=== PATIENT | male | born 1985 | race Caucasian/White ===

== ENCOUNTER 2021-02-25 17:10 | Emergency (ER) | payer BC, OTHER ==
[~2021-02-25] VITALS: Ht 180 cm; Wt 103.4 kg
[2021-02-25] MEDS ORDERED: ACETAMINOPHEN 500 MG TAB (TYLENOL) ONE (17:42)
[2021-02-25] MEDS ORDERED: NS IV 1000 ML 1,000 ML ONE (17:42)
[2021-02-25] MEDS ORDERED: RX-ALBUTEROL INHALER 8.5 GM HFA (PROAIR) IH STA (17:50)
[2021-02-25 18:01] LABS: EOSINOPHILS % (AUTO) 0 % (0-10); LYMPHOCYTES # (AUTO) 0.5 10^3/uL (1.0-4.0)
--- NOTE | 2021-02-25 18:01 | ED General ---
General Chief Complaint: Fever-Adult/Adol Stated Complaint: FATIGUE/COLD SWEATS/COUGH/SOA History of Present Illness Date Seen by Provider: Feb 25, 2021 Time Seen by Provider: 17:45 Initial Comments 35-year-old male presents for 2-week history of cough, congestion, and malaise. He has been treating his symptoms with Tylenol and ibuprofen and no improvement. His family members had similar symptoms. He does not have someone with a positive Covid test however most of them believe they have COVID, none have been vaccinated. He has continued to work and do normal activities, as tolerated. Last Ibuprofen approximately 90 minutes ago, temp 101.7 at presentation. Denies productive cough. Reports no loss of smell or taste. He took ASA 81 mg today. Timing/Duration: Changing Over Time (2 weeks) Associated Systoms: No Chest Pain; Cough, Fever/Chills, Loss of Appetite, Malaise; No Nausea/Vomiting; Shortness of Air, Weakness Allergies and Home Medications Allergies Coded Allergies: Sulfa (Sulfonamide Antibiotics) (Verified Allergy, Unknown, 02/25/21) Home Medications Amoxicillin/Potassium Clav 1 Each Tablet, 1 EACH PO BID Prescribed by: SU VALDES on 02/25/211911 Azithromycin 250 Mg Tablet, 250 MG PO UD TAKE 2 TABLETS ON DAY ONE THEN TAKE 1 TABLET DAILY FOR FOUR MORE DAYS Prescribed by: SU VALDES on 02/25/211911 Dexamethasone 6 Mg Tablet, 6 MG PO DAILY Prescribed by: SU VALDES on 02/25/211911 Patient Home Medication List Home Medication List Reviewed: Yes Review of Systems Review of Systems Constitutional: see HPI, chills, fever, malaise EENTM: see HPI, nose congestion Respiratory: see HPI, cough, dyspnea on exertion Cardiovascular: no symptoms reported, see HPI; No chest pain Gastrointestinal: see HPI; No abdominal pain, No diarrhea; loss of appetite, nausea (mild, better after eating); No vomiting Genitourinary: no symptoms reported, see HPI All Other Systems Reviewed Negative Unless Noted: Yes Past Gxqfxda-Llcbnv-Tmfocl Hx Patient Social History Tobacco Use?: No Use of E-Cig and/or Vaping dev: No Substance use?: No Alcohol Use?: No Seasonal Allergies Seasonal Allergies: No Family Medical History Reviewed and Corrections made Physical Exam Vital Signs Vital Signs - First Documented 02/25/21 02/25/21 17:46 20:45 Temp 38.7 Pulse 94 Resp 18 B/P (MAP) 119/81 Pulse Ox 93 Capillary Refill : Height, Weight, BMI Height: '" Weight: lbs. oz. kg; BMI Method: General Appearance: No Apparent Distress, WD/WN Eyes: Bilateral Eye Normal Inspection, Bilateral Eye PERRL, Bilateral Eye EOMI HEENT: PERRL/EOMI, TMs Normal, Normal ENT Inspection, Pharynx Normal, Moist Mucous Membranes Neck: Full Range of Motion, Normal Inspection, Non Tender, Supple Respiratory: Chest Non Tender, Lungs Clear, Normal Breath Sounds Cardiovascular: Regular Rate, Rhythm, No Edema, No Murmur, Normal Peripheral Pulses Gastrointestinal: Normal Bowel Sounds, Non Tender, Soft; No Distended, No Mass, No Rebound, No Tenderness Back: Normal Inspection, No CVA Tenderness, No Vertebral Tenderness Extremity: Normal Capillary Refill, Normal Inspection, Normal Range of Motion, Non Tender, No Calf Tenderness, No Pedal Edema Neurologic/Psychiatric: Alert, Oriented x3, No Motor/Sensory Deficits, Normal Mood/Affect Skin: Normal Color, Warm/Dry Focused Exam Lactate Level 02/25/21 17:30: Lactic Acid Level 1.08 Lactic Acid Level Laboratory Tests Test 02/25/21 17:30 Lactic Acid Level 1.08 MMOL/L (0.50-2.00) Progress/Results/Core Measures Suspected Sepsis Recent Fever Within 48 Hours: Yes Infection Criteria Present: Suspected New Infection New/Unexplained Altered Menta: No Within 3hrs of presentation: Admin fluids, Blood cultures prior to ABX's, D/C Instructions given to patient, Focus exam, Lactate level SIRS Temperature: Pulse: Respiratory Rate: Laboratory Tests 02/25/21 17:30: White Blood Count 3.3L Blood Pressure / Mean: 02/25/21 17:30: Lactic Acid Level 1.08 Laboratory Tests 02/25/21 17:30: Creatinine 0.98, INR Comment 1.0, Platelet Count 133, Total Bilirubin 0.5 Results/Orders Lab Results Laboratory Tests Test 02/25/21 17:27 02/25/21 17:30 02/25/21 18:16 Range/Units Influenza Type A (RT-PCR) Not Detected Not Detecte Influenza Type B (RT-PCR) Not Detected Not Detecte SARS-CoV-2 RNA (RT-PCR) Detected H Not Detecte White Blood Count 3.3 L 4.3-11.0 10^3/uL Red Blood Count 5.23 4.30-5.52 10^6/uL Hemoglobin 14.4 13.3-17.7 g/dL Hematocrit 44 40-54 % Mean Corpuscular Volume 83 80-99 fL Mean Corpuscular Hemoglobin 28 25-34 pg Mean Corpuscular Hemoglobin Concent 33 32-36 g/dL Red Cell Distribution Width 13.3 10.0-14.5 % Platelet Count 133 130-400 10^3/uL Mean Platelet Volume 11.2 9.0-12.2 fL Immature Granulocyte % (Auto) 0 % Neutrophils (%) (Auto) 81 H 42-75 % Lymphocytes (%) (Auto) 14 12-44 % Monocytes (%) (Auto) 4 0-12 % Eosinophils (%) (Auto) 0 0-10 % Basophils (%) (Auto) 0 0-10 % Neutrophils # (Auto) 2.7 1.8-7.8 10^3/uL Lymphocytes # (Auto) 0.5 L 1.0-4.0 10^3/uL Monocytes # (Auto) 0.1 0.0-1.0 10^3/uL Eosinophils # (Auto) 0.0 0.0-0.3 10^3/uL Basophils # (Auto) 0.0 0.0-0.1 10^3/uL Immature Granulocyte # (Auto) 0.0 0.0-0.1 10^3/uL Percent Immature Platelet Fraction 5.7 0.0-7.6 % Erythrocyte Sedimentation Rate 33 H 0-15 MM/HR Prothrombin Time 13.6 12.2-14.7 SEC INR Comment 1.0 0.8-1.4 Activated Partial Thromboplast Time 28 24-35 SEC Sodium Level 139 135-145 MMOL/L Potassium Level 3.8 3.6-5.0 MMOL/L Chloride Level 106 98-107 MMOL/L Carbon Dioxide Level 21 21-32 MMOL/L Anion Gap 12 5-14 MMOL/L Blood Urea Nitrogen 10 7-18 MG/DL Creatinine 0.98 0.60-1.30 MG/DL Estimat Glomerular Filtration Rate 88 BUN/Creatinine Ratio 10 Glucose Level 108 H 70-105 MG/DL Lactic Acid Level 1.08 0.50-2.00 MMOL/L Calcium Level 8.3 L 8.5-10.1 MG/DL Corrected Calcium 8.4 L 8.5-10.1 MG/DL Total Bilirubin 0.5 0.1-1.0 MG/DL Aspartate Amino Transf (AST/SGOT) 28 5-34 U/L Alanine Aminotransferase (ALT/SGPT) 27 0-55 U/L Alkaline Phosphatase 48 40-136 U/L Lactate Dehydrogenase 332 H 125-220 U/L C-Reactive Protein High Sensitivity 6.61 H 0.00-0.50 MG/DL Total Protein 7.0 6.4-8.2 GM/DL Albumin 3.9 3.2-4.5 GM/DL Procalcitonin 0.06 <0.10 NG/ML Urine Color DARK YELLOW Urine Clarity CLEAR Urine pH 7.5 5-9 Urine Specific Wayne 1.015 L 1.016-1.022 Urine Protein 1+ H NEGATIVE Urine Glucose (UA) NEGATIVE NEGATIVE Urine Ketones 1+ H NEGATIVE Urine Nitrite NEGATIVE NEGATIVE Urine Bilirubin NEGATIVE NEGATIVE Urine Urobilinogen 1.0 < = 1.0 MG/DL Urine Leukocyte Esterase NEGATIVE NEGATIVE Urine RBC (Auto) NEGATIVE NEGATIVE Urine RBC NONE /HPF Urine WBC 2-5 /HPF Urine Squamous Epithelial Cells NONE /HPF Urine Renal Epithelial Cells NONE /HPF Urine Crystals NONE /LPF Urine Bacteria NEGATIVE /HPF Urine Casts NONE /LPF Urine Mucus SMALL H /LPF Urine Culture Indicated NO My Orders Orders - SU VALDES Covid 19 Inhouse Test (02/25/21 17:18) Influenza A And B By Pcr (02/25/21 17:18) Acetaminophen Tablet (Tylenol Tablet) (02/25/21 17:42) Ns Iv 1000 Ml (Sodium Chloride 0.9%) (02/25/21 17:42) Cbc With Automated Diff (02/25/21 17:50) Comprehensive Metabolic Panel (02/25/21 17:50) Procalcitonin (Pct) (02/25/21 17:50) Hs C Reactive Protein (02/25/21 17:50) Erythrocyte Sedimentation Rate (02/25/21 17:50) LDH (02/25/21 17:50) Blood Culture (02/25/21 17:50) Urinalysis (02/25/21 17:50) Urine Culture (02/25/21 17:50) Protime With Inr (02/25/21 17:50) Partial Thromboplastin Time (02/25/21 17:50) Chest 1 View, Ap/Pa Only (02/25/21 17:50) Ed Iv/Invasive Line Start (02/25/21 17:50) O2 (02/25/21 17:50) Lactic Acid Analyzer (02/25/21 17:50) Rx-Albuterol Inhaler (Rx-Ventolin Hfa In (02/25/21 17:50) Ceftriaxone (Rocephin) (02/25/21 18:45) Dexamethasone Injection (Decadron Inje (02/25/21 18:45) Ed Iv/Invasive Line Start (02/25/21 18:46) Ns Iv 1000 Ml (Sodium Chloride 0.9%) (02/25/21 19:00) Medications Given in ED Current Medications Medications Dose Ordered Sig/Loki Route Start Time Stop Time Status Last Admin Dose Admin Acetaminophen 500 mg STK-MED ONCE .ROUTE 02/25/21 17:42 02/25/21 17:44 DC 02/25/21 17:46 1,000 MG Ceftriaxone Sodium 2000 mg/ Sterile Water 20 ml @ 240 mls/hr ONCE ONCE IV 02/25/21 18:45 02/25/21 18:49 DC 02/25/21 19:38 240 MLS/HR Dexamethasone Sodium Phosphate 10 mg ONCE ONCE IV 02/25/21 18:45 02/25/21 18:46 DC 02/25/21 19:41 10 MG Sodium Chloride 1,000 ml @ ud STK-MED ONCE .ROUTE 02/25/21 17:42 02/25/21 17:44 DC 02/25/21 17:47 1,000 MLS/HR Vital Signs/I&O 02/25/21 02/25/21 17:46 20:45 Temp 38.7 Pulse 94 Resp 18 B/P (MAP) 119/81 Pulse Ox 93 Capillary Refill : Progress Note : Time: 17:45 Progress Note Patient seen and evaluated, will check labs, chest x-ray and give normal saline 1 L per IV, and Tylenol 1000 mg. SaO2 on room air between 92 and 94%, applied oxygen at 1 L per nasal cannula and maintained SaO2 of 96% or higher. 1805 COVID +, patient notified. 1829 SaO2 97% on 2 L, will return to RA and monitor. Ventolin 2 puffs of HFA. 1899 patient reports improvement in symptoms since the inhaler, Tylenol and IV fluids. Will give Rocephin 2 g IV and a second liter of fluids and plan for discharge. 1929 Temp 98.4. Sa O2 95-97% on RA. 2014 patient has continued to report improvement, no requests at this time will discharge after IV fluids are done infusing. Discharge instructions and return precautions reviewed with the patient. All questions answered. Diagnostic Imaging Diagonstic Imaging: Xray Plain Films/CT/US/NM/MRI: chest Comments NAME: CECILIA JAMES [facility] REC#: [id number] PT STATUS: REG ER : 1985 PHYSICIAN: SU VALDES ADMIT DATE: 02/25/21/ER Signed Date of Exam:02/25/21 CHEST 1 VIEW, AP/PA ONLY INDICATION: Sepsis Portable chest 6:16 PM There appears to be some patchy peripheral alveolar infiltrates in the lungs. There are no effusions or pneumothoraces. Heart size and pulmonary vascularity are normal. IMPRESSION: Faint patchy peripheral alveolar infiltrates in the lungs suspicious for pneumonia Dictated by: Dictated on workstation # [id number] Dict: 02/25/[id number] Trans: 02/25/21 183 SHIRA [id number] Interpreted by: ANAID LEE MD Electronically signed by: ANAID ELE MD 02/25/21 183 Reviewed: Reviewed by Me Departure Impression Primary Impression: COVID-19 Additional Impressions: Fever Qualified Codes: R50.9 - Fever, unspecified Pneumonia Qualified Codes: J18.9 - Pneumonia, unspecified organism Disposition: HOME, SELF-CARE Condition: Stable Departure-Patient Inst. Decision time for Depature: 19:05 Referrals: DIONE FIGUEROA (PCP) Primary Care Physician Patient Instructions: COVID-19 (DC), Fever, Adult (DC), Pneumonia, Adult (DC) Add. Discharge Instructions: Take aspirin 81 mg once a day. Alternate between Tylenol 650 mg and ibuprofen 600 mg every 4 hours for pain or fever. Use the Ventolin inhaler 2 puffs every 4-6 hours as needed for shortness of breath. Increase water intake, 16 ounces every 2 hours while awake. Take an immune vitamin supplement, that includes vitamin C, vitamin D and zinc. Stay home in quarantine until the health department says that you may be rel eased. Notify any close contacts that you have had in the last 48 hours, they will be notified by the Health Dept of their quarantine. Take Antibiotics and Decadron, as prescribed. Walk 5-10 min, every hour, while awake. Take deep breaths and cough. Sleep on your stomach. If you survive COVID, PLEASE get a vaccine as soon as the health dept says you can. Please encourage all family members and friends to get the vaccine, it does save people's lives! Call your primary care provider in 2 to 3 days if symptoms are not improving or worsen, televisit may be an option. Return to the emergency department for fever greater than 101 degrees not relieved with Tylenol and ibuprofen, difficulty breathing, chest pain, or new urgent healthcare needs. All discharge instructions reviewed with patient and/or family. Voiced understanding. Scripts Dexamethasone (Decadron) 6 Mg Tablet 6 MG PO DAILY, #7 TAB 0 Refills Prov: SU VALDES 02/25/21 Azithromycin (Azithromycin) 250 Mg Tablet 250 MG PO UD, #6 TAB 0 Refills TAKE 2 TABLETS ON DAY ONE THEN TAKE 1 TABLET DAILY FOR FOUR MORE DAYS Prov: SU VALDES 02/25/21 Amoxicillin/Potassium Clav (Augmentin 875-125 Tablet) 1 Each Tablet 1 EACH PO BID, #20 TAB 0 Refills Prov: SU VALDES 02/25/21 Work/School Note: Work Release Form Date Seen in the Emergency Department: Feb 25, 2021 Restrictions: Need Release from Doctor Other Restrictions Listed Below: no work, until released by Dr. Figueroa Copy Copies To 1: DIONE FIGUEROA AMY ARNP Feb 25, 2021 18:01
[2021-02-25 18:03] LABS: BASOPHILS % (AUTO) 0 % (0-10); HEMATOCRIT 44 % (40-54); HEMOGLOBIN 14.4 g/dL (13.3-17.7); LYMPHOCYTES % (AUTO) 14 % (12-44); MEAN CORPUSCULAR HEMOGLOBIN 28 pg (25-34); MEAN CORPUSCULAR HGB CONC 33 g/dL (32-36); MEAN CORPUSCULAR VOLUME 83 fL (80-99); MEAN PLATELET VOLUME 11.2 fL (9.0-12.2); MONOCYTES # (AUTO) 0.1 10^3/uL (0.0-1.0); MONOCYTES % (AUTO) 4 % (0-12); NEUTROPHILS # (AUTO) 2.7 10^3/uL (1.8-7.8); NEUTROPHILS % (AUTO) 81 % (42-75); PLATELET COUNT 133 10^3/uL (130-400); WHITE BLOOD COUNT 3.3 10^3/uL (4.3-11.0)
[2021-02-25 18:11] LABS: ALBUMIN 3.9 GM/DL (3.2-4.5); POTASSIUM 3.8 MMOL/L (3.6-5.0)
[2021-02-25 18:12] LABS: CALCIUM 8.3 MG/DL (8.5-10.1)
[2021-02-25 18:16] LABS: BILIRUBIN,TOTAL 0.5 MG/DL (0.1-1.0)
[2021-02-25 18:17] LABS: CREATININE SERUM 0.98 MG/DL (0.60-1.30); PROTHROMBIN TIME PATIENT 13.6 SEC (12.2-14.7)
[2021-02-25 18:28] LABS: BILIRUBIN,URINE NEGATIVE (NEGATIVE); CLARITY,URINE CLEAR; COLOR,URINE DARK YELLOW; GLUCOSE, URINE (UA) NEGATIVE (NEGATIVE); KETONES,URINE 1+ (NEGATIVE); LEUKOCYTE ESTERASE ,URINE NEGATIVE (NEGATIVE); NITRITE,URINE NEGATIVE (NEGATIVE); PH,URINE 7.5 (5-9); PROTEIN,URINE 1+ (NEGATIVE)
[2021-02-25 18:31] LABS: ERYTHROCYTE SEDIMENTATION RATE 33 MM/HR (0-15)
[2021-02-25 18:35] LABS: BACTERIA,URINE NEGATIVE /HPF
--- NOTE | 2021-02-25 18:36 | Diagnostic Imaging Report ---
INDICATION: Sepsis Portable chest 6:16 PM There appears to be some patchy peripheral alveolar infiltrates in the lungs. There are no effusions or pneumothoraces. Heart size and pulmonary vascularity are normal. IMPRESSION: Faint patchy peripheral alveolar infiltrates in the lungs suspicious for pneumonia Dictated by: Dictated on workstation # [id number]
[2021-02-25] MEDS ORDERED: cefTRIAXone 2,000 MG in WATER (STERILE) FOR INJECTION 20 ML IV ONE (18:45)
[2021-02-25] MEDS ORDERED: NS IV 1000 ML 1,000 ML IV SCH (19:00)
[2021-02-25] MEDS ORDERED: AZIT250T12 PO (19:12)
[2021-02-25] MEDS ORDERED: AMOX-358 PO (19:12)
[2021-02-25] MEDS ORDERED: DEXA6TAB6 PO (19:12)
[2021-02-25 20:45] VITALS: BP 119/81
== END 2021-02-25 20:48 | disposition home or self-care (01) ==
LOC: EDUNIT# 17:10 → ER 17:12
DX: U07.1 COVID-19 (principal); J18.9 Pneumonia, unspecified organism
CPT/HCPCS: 36415; 71045; 80053; 81000; 83605; 83615; 84145; 85025; 85610; 85652; 85730; 86141; 87040; 87088; 87636